=== PATIENT | male | born 1955 | race African-American/Black ===

== ENCOUNTER 2016-09-05 12:19 | Emergency (ER) | payer OTHER ==
[2016-09-05 12:24] VITALS: TEMP 98.4; BMI 47.9
--- NOTE | 2016-09-05 13:18 | PDOC ---
History of Present Illness - General History Source: Patient Exam Limitations: No Limitations - History of Present Illness Initial Comments: 09/05/16 13:12 61 year old male with PMH of HTN, HLD, Non-Insulin dependent diabetes, and chronic lymphedema presenting with primar complaint of lower extremity swelling. He states that his LE swelling has been gradually worsening over the past few months but not acutely worsening and is still ambulatory without any respiratory difficult, chest pain, palpitations, or other illnesses/ difficulties. He admits that he has not been taking his lasix for the past few months as well. His PCP is Dr. Mason. <Jaime Fam - Last Filed: 09/05/16 13:33> <Miracle Benavides - Last Filed: 09/05/16 15:39> - General Chief Complaint: Edema Stated Complaint: SWOLLEN LEGS Time Seen by Provider: 09/05/16 12:45 Past History - Past Medical History Diabetes: Yes (iddm) HTN: Yes Hypercholesterolemia: Yes Kidney Stones: Yes - Psycho/Social/Smoking Cessation Hx Anxiety: No Suicidal Ideation: No Smoking History: Never smoked Have you smoked in the past 12 months: No Information on smoking cessation initiated: No Hx Alcohol Use: No Drug/Substance Use Hx: No Substance Use Type: None <Jaime Fam - Last Filed: 09/05/16 13:33> <Miracle Benavides - Last Filed: 09/05/16 15:39> - Past Medical History Allergies/Adverse Reactions: Allergies Allergy/AdvReac Type Severity Reaction Status Date / Time No Known Allergies Allergy Verified 09/05/16 12:22 Home Medications: Ambulatory Orders Amlodipine Bes/Olmesartan Med [Amlodipine-Olmesartan 5-40 mg] 1 each PO DAILY Atorvastatin Ca [Lipitor] 20 mg PO DAILY 09/05/16 Cholecalciferol (Vitamin D3) [Vitamin D3 -] 1,000 unit PO DAILY 09/05/16 Ferrous Sulfate 325 mg PO DAILY 09/05/16 Linagliptin [Tradjenta] 5 mg PO DAILY 09/05/16 Potassium Chloride 10 meq PO DAILY 09/05/16 Repaglinide 1 mg PO DAILY 09/05/16 Tamsulosin HCl 0.4 mg PO DAILY 09/05/16 Review of Systems - Review of Systems Constitutional: No: Chills, Diaphoresis, Fever, Loss of Appetite, Night Sweats, Unexplained wgt Loss HEENTM: No: Eye Pain, Blurred Vision, Recent change in vision Respiratory: No: Cough, Orthopnea, Shortness of Breath, SOB with Exertion, SOB at Rest, Stridor, Wheezing, Productive cough, Hemoptysis Cardiac (ROS): Yes: Edema. No: Irregular Heart Rate, Lightheadedness, Palpitations, Syncope, Chest Tightness ABD/GI: No: Abdominal Distended, Blood Streaked Bowels, Constipated, Diarrhea, Nausea, Poor Appetite, Poor Fluid Intake, Vomiting : No: Dysuria, Discharge, Frequency Musculoskeletal: No: Back Pain, Gout, Joint Pain Integumentary: Yes: Lesions Neurological: No: Headache Psychiatric: No: Anxiety Endocrine: No: Increased Thirst, Increased Urine <Jaime Fam - Last Filed: 09/05/16 13:33> *Physical Exam - Vital Signs Last Vital Signs Temp Pulse Resp BP Pulse Ox 98.4 F 56 L 15 107/61 100 09/05/16 12:23 09/05/16 12:23 09/05/16 12:23 09/05/16 12:23 09/05/16 12:23 - Physical Exam General Appearance: Yes: Nourished, Obese, Other (No distress) HEENT: positive: EOMI, KANDI, Normal ENT Inspection, Normal Voice. negative: Scleral Icterus (R), Scleral Icterus (L), Rhinorrhea Neck: negative: Tender Respiratory/Chest: negative: Chest Tender, Lungs Clear, Normal Breath Sounds, Respiratory Distress, Accessory Muscle Use Cardiovascular: positive: Regular Rhythm, Regular Rate, S1, S2, Edema, Other ( DIfficult to auscultate heart sounds.). negative: JVD, Murmur, Bradycardia, Tachycardia, Systolic Murmur Gastrointestinal/Abdominal: positive: Normal Bowel Sounds, Flat, Soft. negative : Tender, Organomegaly, Pulsatile Mass Extremity: positive: Pedal Edema, Swelling, Other (Impressive chronic lymphedema bilateraly in his lower extremities). negative: Tender Integumentary: positive: Dry, Warm, Swelling (Se above) Neurologic: positive: Fully Oriented, Alert, Normal Mood/Affect, Other (Normal ambulatory function without obvious difficulty) <Jaime Fam - Last Filed: 09/05/16 13:33> - Vital Signs Last Vital Signs Temp Pulse Resp BP Pulse Ox 98.4 F 58 L 22 110/71 98 09/05/16 12:23 09/05/16 13:44 09/05/16 13:44 09/05/16 13:44 09/05/16 13:44 <Miracle Benavides - Last Filed: 09/05/16 15:39> Medical Decision Making - Critical Care Time Total Critical Care Time (minutes): 15 - Medical Decision Making 09/05/16 13:25 Obese 61 year old male with HTN, HLD and history of chronic lymphedema with gradually worsening edema over the past few months in the setting of medication non-compliance (specifically Lasix) without respiratory compromise. An extended conversation about the utility of Lasix with his lower extremity swelling and kidney disease was performed. The patient understands that he must take his Lasix scheduled in order to relieve the swelling he is experiencing. He will also follow up with his wound care and primary care physician. <Jaime Fam - Last Filed: 09/05/16 13:33> - Medical Decision Making 09/05/16 15:35 pt seen and examined by me, and discussed with resident. Resident's documentation reviewed. I agree with the resident's history and physical, assessment and plan. Patient presents to the ED complaining of chronic, symmetric, bilateral LE edema. Admits to abstaining from his lasix for weeks. Patient has already restarted his lasix. Denies chest pain, AMANDA, orthopnea or shortness of breath. Patient will follow up in PMD's office this week. <Miracle Benavides - Last Filed: 09/05/16 15:39> *DC/Admit/Observation/Transfer - Discharge Dispostion Admit: No - Attestations Physician Attestion: 09/05/16 13:32 I, Dr. Jaime Fam, attest that this document has been prepared under my direction and personally reviewed by me in its entirety. I further attest, that it accurately reflects all work, treatment, procedures and medical decision -making performed by me. <Jaime Fam - Last Filed: 09/05/16 13:33> - Discharge Dispostion Admit: No <Miracle Benavides - Last Filed: 09/05/16 15:39> Diagnosis at time of Disposition: Lymphedema - Discharge Dispostion Disposition: HOME Condition at time of disposition: Stable - Referrals Referrals: Noble Mason [Primary Care Provider] - - Patient Instructions Printed Discharge Instructions: DI for Lymphedema Additional Instructions: You were seen for swelling in both of your legs that has worsened only slightly over the past few months while you were not taking your Lasix. We discussed in length that you should be taking your Lasix and following up with your primary care physician and wound care. Please return if you are experiencing shortness of breath or difficulty laying flat or trouble breathing with ambulation. Print Language: CHINESE
[2016-09-05 13:45] VITALS: BP 110/71; PULSE 58
== END 2016-09-05 13:47 | disposition home or self-care (01) ==
LOC: JER 12:19
DX: I89.1 Lymphangitis (principal); I10 Essential (primary) hypertension; E11.9 Type 2 diabetes mellitus without complications; Z79.84 Long term (current) use of oral hypoglycemic drugs; E78.00 Pure hypercholesterolemia, unspecified
CPT/HCPCS: 99281-25

== ENCOUNTER 2016-12-12 23:10 | Emergency (ER) | payer OTHER ==
[2016-12-12 23:18] VITALS: BP 126/69; PULSE 62; TEMP 98.3; BMI 45.1
--- NOTE | 2016-12-12 23:22 | PDOC ---
Attending Attestation - Resident Resident Name: Ra Gauravhil - ED Attending Attestation I have performed the following: I have examined & evaluated the patient, The case was reviewed & discussed with the resident, I agree w/resident's findings & plan, Exceptions are as noted - Medical Decision Making 12/12/16 23:22 I, Dr. Melissa Trotter, DO, attest that this document has been prepared under my direction and personally reviewed by me in its entirety. I further attest, that it accurately reflects all work, treatment, procedures and medical decision -making performed by me. 12/12/16 23:57 a/p: 61yo male with R leg pain -pain from R hip to R knee, concerned about dvt -will obtain doppler -LLE mild cellulitis, nontoxic in appearance. will start abx. -pt has appt with PMD for tomorrow. -suspect R leg pain prob coming from low back, no midline ttp, no step offs, ambulates with a steady gait, no pain at this time <Melissa Trotter - Last Filed: 12/12/16 23:57> - HPI HPI: 12/13/16 00:02 61 y/o M with a PMHx of HTN, HLD, diabetes, chronic lymphedema presents to the ED with right leg pain today. Patient denies current pain, but came to the ED because he had an appointment with Dr. Cooper that he had to cancel today. He reports the pain begins at his right hip and radiates down his leg. He also reports new redness in his LLE. Denies fever, chills. Denies NVD. Denies chest pain, SOB. - Physicial Exam PE: 12/13/16 00:02 GENERAL: Awake, alert, and fully oriented, in no acute distress. Obese HEAD: No signs of trauma EYES: PERRLA, EOMI, sclera anicteric, conjunctiva clear ENT: Auricles normal inspection, hearing grossly normal, nares patent, oropharynx clear without exudates. Moist mucosa NECK: Normal ROM, supple, no lymphadenopathy, JVD, or masses LUNGS: Breath sounds equal, clear to auscultation bilaterally. No wheezes, and no crackles HEART: Regular rate and rhythm, normal S1 and S2, no murmurs, rubs or gallops ABDOMEN: Soft, nontender, normoactive bowel sounds. No guarding, no rebound. No masses EXTREMITIES: Chronic lymphedema in bilateral lower extremities. Normal range of motion, no edema. No clubbing or cyanosis. No cords, erythema, or tenderness NEUROLOGICAL: Cranial nerves II through XII grossly intact. Normal speech. Ambulates with a steady gait SKIN: Mild cellulitis in left leg, less in the right. Warm, Dry, normal turgor, no rashes. - Medical Decision Making 12/13/16 00:02 Documentation prepared by Laila Garcia, acting as hospital medical assistant for Melissa Trotter DO. <Laila Garcia - Last Filed: 12/13/16 00:02>
--- NOTE | 2016-12-12 23:48 | PDOC ---
History of Present Illness - General Chief Complaint: Edema Stated Complaint: SWOLLEN LEGS Time Seen by Provider: 12/12/16 23:20 History Source: Patient Exam Limitations: No Limitations - History of Present Illness Initial Comments: 12/12/16 23:46 61 year old male with PMH of HTN, HLD, Non-Insulin dependent diabetes, chronic lower back pain, and chronic lymphedema presenting with right hip pain. Patient states his pain is 8/10 at worst, but he does nto currently have any pain. The pain is sharp and radiates down his leg. Patient takes percocet, which has helped. Patient is concerned he has a DVT. Patient denies espiratory difficult, chest pain, palpitations, or other illnesses/ difficulties. His PCP is Dr. Mason. 12/12/16 23:50 Past History - Past Medical History Allergies/Adverse Reactions: Allergies Allergy/AdvReac Type Severity Reaction Status Date / Time No Known Allergies Allergy Verified 12/12/16 23:18 Home Medications: Ambulatory Orders Amlodipine Bes/Olmesartan Med [Amlodipine-Olmesartan 5-40 mg] 1 each PO DAILY Atorvastatin Ca [Lipitor] 20 mg PO DAILY 09/05/16 Cholecalciferol (Vitamin D3) [Vitamin D3 -] 1,000 unit PO DAILY 09/05/16 Ferrous Sulfate 325 mg PO DAILY 09/05/16 Linagliptin [Tradjenta] 5 mg PO DAILY 09/05/16 Repaglinide 1 mg PO DAILY 09/05/16 Tamsulosin HCl 0.4 mg PO DAILY 09/05/16 Vits A and D/White Pet/Lanolin [A and D Ointment] 113 gm TP DAILY #1 oint...g. 11/14/16 Cephalexin [Keflex] 500 mg PO QID #40 capsule 12/13/16 Sulfamethoxazole/Trimethoprim [Bactrim Ds -] 2 tab PO BID #40 tablet 12/13/16 Diabetes: Yes (iddm) HTN: Yes Hypercholesterolemia: Yes Kidney Stones: Yes - Suicide/Smoking/Psychosocial Hx Smoking History: Never smoked Have you smoked in the past 12 months: No Information on smoking cessation initiated: No Hx Alcohol Use: No Drug/Substance Use Hx: No Substance Use Type: None Review of Systems - Review of Systems Able to Perform ROS?: Yes Comments:: 12/12/16 23:48 GENERAL/CONSTITUTIONAL: No fever or chills. No weakness. HEAD, EYES, EARS, NOSE AND THROAT: No change in vision. No ear pain or discharge. No sore throat. CARDIOVASCULAR: No chest pain or shortness of breath RESPIRATORY: No cough, wheezing, or hemoptysis. GASTROINTESTINAL: No nausea, vomiting, diarrhea or constipation. GENITOURINARY: No dysuria, frequency, or change in urination. MUSCULOSKELETAL: +right hip/thigh pain, +edema SKIN: No rash NEUROLOGIC: No headache, vertigo, loss of consciousness, or change in strength/ sensation. ENDOCRINE: No increased thirst. No abnormal weight change HEMATOLOGIC/LYMPHATIC: No anemia, easy bleeding, or history of blood clots. ALLERGIC/IMMUNOLOGIC: No hives or skin allergy. *Physical Exam - Vital Signs Last Vital Signs Temp Pulse Resp BP Pulse Ox 98.3 F 62 23 126/69 100 12/12/16 23:15 12/12/16 23:15 12/12/16 23:15 12/12/16 23:15 12/12/16 23:15 - Physical Exam Comments: 12/12/16 23:48 GENERAL: Awake, alert, and fully oriented, in no acute distress HEAD: No signs of trauma, normocephalic, atraumatic EYES: PERRLA, EOMI, sclera anicteric, conjunctiva clear ENT: Auricles normal inspection, hearing grossly normal, nares patent, oropharynx clear without exudates. Moist mucosa NECK: Normal ROM, supple, no lymphadenopathy, JVD, or masses LUNGS: No distress, speaks full sentences, clear to auscultation bilaterally HEART: Regular rate and rhythm, normal S1 and S2, no murmurs, rubs or gallops, peripheral pulses normal and equal bilaterally. ABDOMEN: Soft, nontender, normoactive bowel sounds. No guarding, no rebound. No masses EXTREMITIES: Normal inspection, Normal range of motion, + chronic lymphedema of b/l extremities. No clubbing or cyanosis. No pain upon palpation. NEUROLOGICAL: Cranial nerves II through XII grossly intact. Normal speech, normal gait, no focal sensorimotor deficits. 5/5 strength b/l, sensation intact. SKIN: Warm, Dry, normal turgor, no rashes or lesions noted. ED Treatment Course - RADIOLOGY Radiology Studies Ordered: Category Date Time Status DUPLEX VASCUL US-1 LEG [US] Stat Ultrasound 12/12/16 23:42 Ordered Medical Decision Making - Medical Decision Making 12/12/16 23:50 61 year old male with PMH of HTN, HLD, Non-Insulin dependent diabetes, chronic lower back pain, and chronic lymphedema presenting with right hip pain. Given hx/pe, will do u/s of RLE to r/o DVT. If negative, patient will be d/c with follow up with his pain management. Patient ambulatory with steady gait. 12/13/16 00:02 Given mild redness of LLE, will treat cellulitis with bactrim and keflex. Patient will get 10 days of tx outpatient 12/13/16 01:38 U/s negative for DVT. Patient stable for d/c *DC/Admit/Observation/Transfer Diagnosis at time of Disposition: Hip pain Qualifiers: Laterality: right Qualified Code(s): M25.551 - Pain in right hip - Discharge Dispostion Disposition: HOME Condition at time of disposition: Stable - Prescriptions Prescriptions: Sulfamethoxazole/Trimethoprim [Bactrim Ds -] 2 tab PO BID #40 tablet Cephalexin [Keflex] 500 mg PO QID #40 capsule - Referrals Referrals: Noble Mason [Primary Care Provider] - - Patient Instructions Printed Discharge Instructions: DI for Leg Pain Additional Instructions: Please follow up with your primary care provider and pain management physician within 1 week. If you have chest pain, shortness of breath, or any new/worsening symptoms please come back to the hospital immediately.
[2016-12-12] MEDS ORDERED: CEPHALEXIN MONOHYDRATE 500 MG CAPSULE (UD) PO ONE (23:56)
[2016-12-12] MEDS ORDERED: SULFAMETHOXAZOLE/TRIMETHOPRIM 800MG/160MG D.S. TABLET PO ONE (23:57)
[2016-12-13] MEDS ORDERED: SULFAMETHOXAZOLE/TRIMETHOPRIM 800MG/160MG D.S. TABLET ONE (00:21)
[2016-12-13] MEDS ORDERED: CEPHALEXIN MONOHYDRATE 250 MG CAPSULE (FP) ONE (00:22)
== END 2016-12-13 01:57 | disposition home or self-care (01) ==
LOC: SUPCPDRO 23:10 → JER 23:10
DX: M25.551 Pain in right hip (principal); E11.9 Type 2 diabetes mellitus without complications; M54.5 Low back pain; G89.29 Other chronic pain; I89.0 Lymphedema, not elsewhere classified; I10 Essential (primary) hypertension; E78.00 Pure hypercholesterolemia, unspecified
CPT/HCPCS: 93971-TC; 99281-25

== ENCOUNTER 2018-11-22 06:06 | Day surgery (SDC) | payer OTHER ==
[2018-11-19 17:57] VITALS: BMI 41.0
[~2018-11-22 06:06] MED LIST: TOBRAMYCIN/DEXAMETHASONE OPHTH. OINTMENT 1 TUBE TP ONE
[2018-11-22] MEDS ORDERED: PHENYLEPHRINE 2.5% OPHTH SOLN 15 ML BOTTLE ONE (06:34)
[2018-11-22] MEDS ORDERED: KETOROLAC TROMETHAMINE 0.5% EYE DROP 1 DROP DROPS ONE (06:34)
[2018-11-22] MEDS ORDERED: CIPROFLOXACIN HCL 0.3% OPHTH 2.5ML BOTTLE ONE (06:34)
[2018-11-22] MEDS ORDERED: TROPICAMIDE 1% OPHTH SOLN 15 ML BOTTLE ONE (06:34)
[2018-11-22] MEDS ORDERED: PHENYLEPHRINE 2.5% OPHTH SOLN 15 ML BOTTLE OP SCH (06:45)
[2018-11-22] MEDS ORDERED: KETOROLAC TROMETHAMINE 0.5% EYE DROP 1 DROP DROPS OP SCH (06:45)
[2018-11-22] MEDS ORDERED: CIPROFLOXACIN HCL 0.3% OPHTH 2.5ML BOTTLE OP SCH (06:45)
[2018-11-22] MEDS ORDERED: ACETAMINOPHEN 325 MG TABLET (FP) PO PRN (06:45)
[2018-11-22] MEDS ORDERED: TROPICAMIDE 1% OPHTH SOLN 15 ML BOTTLE OP SCH (06:45)
[2018-11-22] MEDS ORDERED: MIDAZOLAM HCL 2 MG/2 ML SINGLE DOSE VIAL ONE (07:01)
[2018-11-22] MEDS ORDERED: CHONDROITIN SU A/HYALUR SOD 1 KIT ONE (07:09)
[2018-11-22] MEDS ORDERED: TETRACAINE 0.5% OPHTH SOLN 2 ML BOTTLE ONE (07:14)
[2018-11-22] MEDS ORDERED: EPINEPHrine/PF 1 MG/1 ML (1:1,000) AMPULE ONE (07:16)
[2018-11-22] MEDS ORDERED: TOBRAMYCIN/DEXAMETHASONE OPHTH. OINTMENT 1 TUBE ONE (07:16)
[2018-11-22] MEDS ORDERED: BSS (NA/CA/MG/K) BALANCED SALT SOLUTION OPHTH SOLN 15 ML BOTTLE ONE (07:17)
[2018-11-22] MEDS ORDERED: LIDOCAINE HCL/PF 1% SDV 5ML VIAL ONE (07:17)
[2018-11-22] MEDS ORDERED: POVIDONE-IODINE 5% OPHTHALMIC PREP 30 ML SOLUTION ONE (07:17)
--- NOTE | 2018-11-22 07:26 | HP ---
History & Physical Update - History History: No Change - Physical Physical: No Change - Assessment Assessment: No Change - Plan Plan: No Change (Reviewed H and P from 11/19/[address] Mason, no changes)
[2018-11-22] MEDS ORDERED: oxyCODONE HCL 5 MG TABLET PO PRN (07:30)
[2018-11-22] MEDS ORDERED: ONDANSETRON 4 MG/2 ML VIAL IVPUSH PRN (07:30)
--- NOTE | 2018-11-22 07:30 | HP ---
- Patient Scheduled date of Surgery: 11/22/18 Scheduled Surgical Procedure: Phacoemulsification and cataract extraction with PCIOL Affected Eye: Right Chief Complaint (Indication for surgery): Decreased vision affecting ADLs - Ocular History Other Eye History: Other (pvd od) Eye Medications: vigamox Previous Eye Surgery: none - Medical History Illnesses: Hypercholesterolemia, Diabetes, Other (BPH) Current Medications: Ambulatory Orders Amlodipine Bes/Olmesartan Med [Amlodipine-Olmesartan 5-40 mg] 1 each PO HS 09/05 Atorvastatin Ca [Lipitor] 20 mg PO HS 09/05/16 Linagliptin [Tradjenta] 5 mg PO DAILY 09/05/16 Tamsulosin HCl 0.4 mg PO HS 09/05/16 Allergies/Adverse Reactions: Allergies Allergy/AdvReac Type Severity Reaction Status Date / Time No Known Allergies Allergy Verified 11/19/18 17:58 Ocular Examination - Best Corrected Visual Acuity Distance: Right eye: 20/60- Distance: Left eye: 20/20- - External/Slit Lamp Examination Abnormalities: pingueculum - Intraocular Pressure Intraocular Pressure - Right eye: 16 Intraocular Pressure-Left eye: 16 - Lens Lens: 2+ NS 2+ ASC - Vitreous/Retina Vitreous/Retina: c:D 0.4 m/v/p wnl + pvd - Special Examination M - Right eye: -2.25-1.50 x 90 M - Left eye: +0.75-1.25 x 100 K - Right eye: 40.75/41 x 125 K - Left eye: 40/40.5 x 180 AL - Right eye: 24.67 AL - Left eye: 24.53 IOL bag: +21.0 AUOOTO IOL sulcus: +20.0 MN60AC IOL AC: +17.50 MTA4uo - Impression Impression: Cataract Right Eye - Plan Plan: Phacoemulsification and cataract extraction - IOL Right eye Post-hospital care will be provided in office on: 11/23/18
[2018-11-22] MEDS ORDERED: TETRACAINE 0.5% OPHTH SOLN 2 ML BOTTLE OD ONE (07:37)
[2018-11-22] MEDS ORDERED: POVIDONE-IODINE 5% OPHTHALMIC PREP 30 ML SOLUTION OD ONE (07:39)
[2018-11-22] MEDS ORDERED: LIDOCAINE HCL 1% PRESERVATIVE FREE - 30ML VIAL IO ONE (07:46)
[2018-11-22] MEDS ORDERED: EPINEPHrine/PF 1 MG/1 ML (1:1,000) AMPULE SQ ONE ×2 (07:46→07:53)
[2018-11-22] MEDS ORDERED: BSS (NA/CA/MG/K) BALANCED SALT SOLUTION OPHTH SOLN 15 ML BOTTLE OD ONE (07:46)
[2018-11-22] MEDS ORDERED: CHONDROITIN SU A/HYALUR SOD 1 KIT IO ONE (07:46)
[2018-11-22] MEDS ORDERED: ACETYLCHOLINE 1:100 INTRA-OCUL 20 MG/2 ML KIT ONE (08:12)
[2018-11-22] MEDS ORDERED: ACETYLCHOLINE 1:100 INTRA-OCUL 20 MG/2 ML KIT NR ONE (08:13)
[2018-11-22] MEDS ORDERED: TOBRAMYCIN/DEXAMETHASONE OPHTH. OINTMENT 1 TUBE TP ONE (08:16)
--- NOTE | 2018-11-22 08:21 | OP ---
Ophthalmology Operative Note Pre-Operative Diagnosis: Cataract Affected Eye: Right Operation: Phacoemulsification and cataract extraction with PCIOL Findings: ns cataract Post-Operative Diagnosis: Same as Pre-op Nuclear Auxiliary Operator: Faviola Anesthesiologist: Ann Diaz Anesthesia: Topical Specimens Removed: none Estimated blood loss: < 1cc Drains & Tubes with Location: none Operative Report Dictated: Yes
--- NOTE | 2018-11-22 08:52 | OP ---
DATE OF OPERATION: 11/22/2018 PREOPERATIVE DIAGNOSIS: Nuclear sclerotic cataract, right eye. POSTOPERATIVE DIAGNOSIS: Nuclear sclerotic cataract, right eye. PROCEDURE: Phacoemulsification and cataract extraction with insertion of posterior chamber intraocular lens, right eye. SURGEON: Rachele Zuniga MD RAG SORTER AND CUTTER: None. ANESTHESIA: Topical. ANESTHESIOLOGIST: Ann Diaz MD OPERATIVE PROCEDURE: The patient received Tetracaine eye drops and was gently sedated and prepped and draped in the usual sterile fashion so as to expose only the right eye. Ophthalmic Betadine was instilled into the inferior fornix and lashes were taped out of the surgical field. An eyelid speculum was placed into the right eye. Paracentesis was made in superior temporal clear cornea at the limbus. Then 0.5 mL of nonpreserved lidocaine 1% was injected into the anterior chamber and then 1 mL of dilute epinephrine 1:10,000 was injected into the anterior chamber to improve pupillary dilation. Viscoelastic material was instilled into the anterior chamber via the paracentesis. A 2.4-mm keratome blade was then used to create the main incision in temporal clear cornea at the limbus. A continuous curvilinear capsulorrhexis was performed using a cystotome and Utrata forceps. Hydrodissection of the lens cortex was performed using BSS on a cannula until the nucleus was noted to be freely rotating. The phacoemulsification tip was then inserted via the main wound and used to scope 2 perpendicular grooves into the lens nucleus. The nucleus was cracked into 4 quadrants. Each quadrant was lifted out of the capsule into the iris plane and individually phacoemulsified. The remaining cortical material was then aspirated using the irrigation/aspiration port. The capsular bag was inflated using ProVisc and a preloaded AcrySof lens model [id number] power +21.0 diopters was injected into the capsular bag. It was centered using a Sinskey hook. The residual viscoelastic material was removed from the anterior chamber using irrigation and aspiration. The wound edges were hydrated using BSS. The wound was tested for leakage and was found to be watertight. Tobradex ointment was placed in the eye, and the speculum was removed from the eye, and the eyelid was closed. A sterile dressing and shield were placed over the eye. The patient was transferred to the recovery room in stable condition, told to follow up in 1 day. Cynthia [id number]
[2018-11-22] MEDS ORDERED: ACETAMINOPHEN 325 MG TABLET (FP) ONE (11:21)
[2018-11-22 13:12] VITALS: BP 130/63; PULSE 58; TEMP 97.7
== END 2018-11-22 12:15 | disposition home or self-care (01) ==
LOC: JASU-SURG 06:06
PROVIDERS: ATTEND Ophthalmology
PROC: 08RJ3JZ Replacement of Right Lens with Synthetic Substitute, Percutaneous Approach (ICD-10-PCS; principal; 2018-11-22 07:30)
DX: H25.11 Age-related nuclear cataract, right eye (principal)
CPT/HCPCS: 82962

== ENCOUNTER 2019-01-25 11:02 | Day surgery (SDC) | payer OTHER ==
[2019-01-24 18:08] VITALS: BMI 26.6
[2019-01-25] MEDS ORDERED: BUPIVACAINE HCL/PF 0.5% (5 MG/ML) 30 ML VIAL IJ ONE (11:34)
[2019-01-25] MEDS ORDERED: LIDOCAINE HCL 1%, 10 MG/ML (20ML VIAL) ONE (11:34)
[2019-01-25] MEDS ORDERED: oxyCODONE HCL 5 MG TABLET PO PRN (12:36)
[2019-01-25] MEDS ORDERED: ONDANSETRON 4 MG/2 ML VIAL IVPUSH PRN (12:36)
[2019-01-25] MEDS ORDERED: PROMETHAZINE HCL 25 MG/1 ML VIAL IVPUSH PRN (12:36)
[2019-01-25] MEDS ORDERED: PROPOFOL 20 ML ONE (12:43)
[2019-01-25] MEDS ORDERED: SUCCINYLCHOLINE CHLORIDE 200 MG/10 ML SYRINGE ONE (12:43)
[2019-01-25] MEDS ORDERED: MIDAZOLAM HCL 2 MG/2 ML SINGLE DOSE VIAL ONE ×2 (12:43)
[2019-01-25] MEDS ORDERED: LACTATED RINGERS SOLUTION 1,000 ML IV SCH (12:45)
[2019-01-25] MEDS ORDERED: BUPIVACAINE HCL/PF 0.25% (2.5MG/ML) 10 ML VIAL ONE (12:46)
[2019-01-25] MEDS ORDERED: ceFAZolin SODIUM 1 GM VIAL IVPB ONE (12:59)
[2019-01-25] MEDS ORDERED: BUPIVACAINE HCL/PF 0.25% (2.5MG/ML) 10 ML VIAL IJ ONE (13:00)
--- NOTE | 2019-01-25 14:14 | OP ---
DATE OF OPERATION: 01/25/2019 PREOPERATIVE DIAGNOSES: Right hydrocele and right scrotal lesion. OPERATIVE PROCEDURES: Excision of scrotal lesion and right hydrocelectomy. ANESTHESIA: General. DESCRIPTION OF PROCEDURE: Under above-stated anesthesia, patient is prepped and draped in the usual sterile manner. He was placed in the supine position. A 2-cm scrotal lesion was palpated at the level of the right penoscrotal junction. An elliptical incision was made encompassing the lesion. This was carried down through skin and subcutaneous tissue. The entire lesion with an elliptical piece of skin was removed. The base was cauterized for hemostasis. The subcutaneous was closed with 3-0 Vicryl suture ligatures and the skin was closed with 5-0 Vicryl mattress sutures. A 2-cm incision was made over the right hemiscrotum. The tunica vaginalis was opened. Approximately 75 mL of straw-colored fluid was drained. The tunica was then plicated using 3-0 Vicryl suture ligatures. No active bleeding was noted. The edges of the tunica were cauterized for hemostasis. The subcutaneous was closed with 3-0 Vicryl suture ligatures. The scrotum was closed with 4-0 chromic mattresses. Pressure dressing was applied. Patient tolerated the procedure well. He returned to the recovery room in good condition. Cynthia [id number]
--- NOTE | 2019-01-25 14:40 | OP ---
Operative Note - Note: Operative Date: 01/25/19 Pre-Operative Diagnosis: rt. hydrocele scrotal lesion. Operation: Right hydrocelectomy and excision of right scrotal lesion Findings: Tense right hydrocele and 2 cm cystic right hemiscrotal lesion Post-Operative Diagnosis: Same as Pre-op Surgeon: Isabel Liz Anesthesia: General, Local Specimens Removed: hydrocele fluid and scrotal lesion
[2019-01-25 15:12] VITALS: TEMP 97.5
[2019-01-25 15:31] VITALS: BP 114/66; PULSE 50
--- NOTE | 2019-02-01 10:30 | PATH ---
Cytology Non-Gynecological Report Patient Name: STARR CANADA [facility]. Rec. #: [id number] /Age/Gender: 1955 (Age: 63) / M Account: [id number] Location: [facility] SUR[facility]ICAL Taken: 01/25/2019 Received: 01/25/2019 Reported: 02/01/2019 Physicians: Isabel Liz M.D. Specimen(s) Received HYDROCELE FLUID Clinical History Hydrocele Final Diagnosis HYDROCELE FLUID FOR CYTOLOGY: SATISFACTORY FOR EVALUATION. NEGATIVE FOR MALIGNANT CELLS. CYSTIC LESION WITH HEMOSIDERIN LADEN MACROPHAGES. SCATTERED HEMOSIDERIN LADEN MACROPHAGES IN A BACKGROUND OF PROTEINACEOUS MATERIAL/DEBRIS. Comment: See concurrent biopsy ([id number]). Electronically Signed Maribel Min M.D. Gross Description Approximately 40 cc of yellow fluid received fixed in 50% alcohol. One cytofunnel prepared and Pap stained. One cellblock prepared.
--- NOTE | 2019-02-01 15:55 | PATH ---
Surgical Pathology Report Patient Name: STARR CANADA [facility]. Rec. #: [id number] /Age/Gender: 1955 (Age: 63) / M Account: [id number] Location: [facility] SUR[facility]ICAL Taken: 01/25/2019 Received: 01/28/2019 Reported: 02/01/2019 Physicians: Isabel Liz M.D. Specimen(s) Received SCROTAL LESION Clinical History Sebaceous cyst Final Diagnosis SCROTAL LESION, EXCISION: PORTION OF SKIN SHOWING DILATED VESSEL WITH ORGANIZING BLOOD CLOT. Comment: Immunohistochemical stains CD31 and CD34 highlight the endothelial cells of the vessel wall, Calretinin and D2-40 are negative Immunohistochemistry stains CD31, CD34, Calretinin, and D2-40 performed at [place], [place] ([id number]) interpreted at [facility]. Positive and negative controls (internal if applicable) show appropriate results. Electronically Signed Chantal Walton M.D. Gross Description Received in formalin labeled "scrotal lesion," is a 0.7 x 0.7 x 0.4 cm paris brown cystic structure which is partially surfaced by a 1.6 x 0.3 cm brown, elliptical portion of skin. Embossing Calender Operator sections are submitted in one cassette. 01/28/2019 saudi01/28/2019
== END 2019-01-25 15:50 | disposition home or self-care (01) ==
LOC: JASU-SURG 11:02
PROVIDERS: ATTEND Urology
PROC: 0HBAXZX Excision of Inguinal Skin, External Approach, Diagnostic (ICD-10-PCS; 2019-01-25)
PROC: 0VB60ZZ Excision of Right Tunica Vaginalis, Open Approach (ICD-10-PCS; principal; 2019-01-25 13:00)
DX: N50.89 Other specified disorders of the male genital organs (principal); N43.3 Hydrocele, unspecified
CPT/HCPCS: 82962; 88108; 88305-TC; 94760

== ENCOUNTER 2021-05-14 13:50 | Emergency (ER) | payer OTHER ==
[2021-05-14 14:56] VITALS: BMI 40.7
[2021-05-14 16:39] VITALS: BP 157/97; PULSE 59; TEMP 97.9
== END 2021-05-14 16:38 | disposition home or self-care (01) ==
LOC: JER 13:50
DX: R00.2 Palpitations (principal)
CPT/HCPCS: 93005; 93010; 99285-25

== ENCOUNTER 2022-08-29 12:34 | Day surgery (SDC) | payer OTHER ==
[2022-08-29] MEDS ORDERED: FERRIC CARBOXYMALTOSE 750 MG in SODIUM CHLORIDE 250 ML IVPB ONE (13:00)
[2022-08-29 20:19] VITALS: BP 110/60; PULSE 50; RESP 18; TEMP 97.9
== END 2022-08-29 14:15 | disposition home or self-care (01) ==
LOC: FINFUSION 12:34 → FM/S 12:36 → FINFUSION 14:15
PROVIDERS: ATTEND Family Medicine
PROC: 3E033GC Introduction of Other Therapeutic Substance into Peripheral Vein, Percutaneous Approach (ICD-10-PCS; principal; 2022-08-29)
DX: D50.9 Iron deficiency anemia, unspecified (principal)
CPT/HCPCS: 96365; J1439

== ENCOUNTER 2022-09-05 12:19 | Day surgery (SDC) | payer OTHER ==
[2022-09-05] MEDS ORDERED: FERRIC CARBOXYMALTOSE 750 MG in SODIUM CHLORIDE 250 ML IVPB ONE (12:45)
[2022-09-05 12:48] VITALS: RESP 18; TEMP 98.5
[2022-09-05 13:25] VITALS: BP 122/62; PULSE 86
== END 2022-09-05 13:25 | disposition home or self-care (01) ==
LOC: FINFUSION 12:19 → FM/S 12:20 → FINFUSION 13:25
PROVIDERS: ATTEND Family Medicine
PROC: 3E033GC Introduction of Other Therapeutic Substance into Peripheral Vein, Percutaneous Approach (ICD-10-PCS; principal; 2022-09-05)
DX: D50.9 Iron deficiency anemia, unspecified (principal)
CPT/HCPCS: 96365; J1439